=== PATIENT | male | born 1970 | race Caucasian/White ===

== ENCOUNTER 2021-09-03 00:16 | Emergency (ER) | payer SELFPAY ==
[~2021-09-03] VITALS: Ht 167.6 cm; Wt 82.0 kg
[2021-09-03] MEDS ORDERED: ACETAMINOPHEN 325MG TABLET PO STA (00:56)
[2021-09-03 05:10] VITALS: BP 140/90
[2021-09-03] MEDS ORDERED: NAPR-681 PO (05:15)
== END 2021-09-03 05:27 | disposition home or self-care (01) ==
LOC: ER 00:44
DX: S00.03XA Contusion of scalp, initial encounter (principal); W18.30XA Fall on same level, unspecified, initial encounter; Y93.89 Activity, other specified; Y92.89 Other specified places as the place of occurrence of the external cause; Y99.8 Other external cause status
CPT/HCPCS: 99284